=== PATIENT | male | born 1955 | race Caucasian/White ===

== ENCOUNTER 2017-01-23 01:16 | Emergency (ER) | payer OTHER ==
[~2017-01-23] VITALS: Ht 175.3 cm; Wt 114.0 kg
[2017-01-23 01:22] VITALS: Ht 175.3 cm; Wt 114.0 kg
[2017-01-23] MEDS ORDERED: ONDANSETRON 4 MG INJ IV STA (01:42)
[2017-01-23] MEDS ORDERED: morphine 4 MG/ML VIAL IV STA (01:42)
--- NOTE | 2017-01-23 02:07 | RADRPT ---
PROCEDURE: CHEST CLINICAL INDICATION: 61-year-old male with chest pain. TECHNIQUE: AP upright portable view of the chest was obtained portably on two radiographs. The im ages were reviewed on a PACS workstation. COMPARISON: None. FINDINGS: The cardiomediastinal silhouette has a normal appearance. There is no evidence for an infiltrate. There is no evidence for congestive heart failure. There is no evidence for pneumothorax. The osseou s structures are intact. IMPRESSION: No evidence for active cardiopulmonary disease. .Chu Pendleton MD, MD Date Time Electronically viewed and signed by .Chu Pendleton MD, on 01/23/2017 02:07 .Emily/
[2017-01-23 02:41] LABS: BASOPHILS % 0.6 % (0.0-2.0); EOSINOPHILS # 0.1 10^3/ul (0.0-0.5); EOSINOPHILS % 1.8 % (0.0-7.0); HEMATOCRIT 41.6 % (42.0-52.0); HEMOGLOBIN 14.2 g/dl (14.0-18.0); LYMPHOCYTES # 2.9 10^3/ul (0.8-2.9); LYMPHOCYTES % 39.7 % (15.0-51.0); MEAN CORPUSCULAR HEMOGLOBIN 30.7 pg (29.0-33.0); MEAN CORPUSCULAR HGB CONC 34.1 g/dl (32.0-37.0); MEAN PLATELET VOLUME 10.3 fl (7.4-10.4); MONOCYTE # 0.5 10^3/ul (0.3-0.9); MONOCYTES % 6.9 % (0.0-11.0); NEUTROPHIL # 3.7 10^3/ul (1.6-7.5); NEUTROPHILS % 50.9 % (39.0-77.0); PLATELET COUNT 232 10^3/UL (140-415); RED BLOOD COUNT 4.62 10^6/ul (4.70-6.10); RED CELL DISTRIBUTION WIDTH 13.4 % (11.5-14.5); WHITE BLOOD COUNT 7.3 10^3/ul (4.8-10.8)
[2017-01-23 02:57] LABS: INR 1.02; PROTIME 13.4 Sec (12.2-14.2)
[2017-01-23 02:58] LABS: PARTIAL THROMBOPLASTIN TIME 28.9 Sec (25.0-35.0)
[2017-01-23 02:59] LABS: ALANINE AMINOTRANSFERASE 41 IU/L (13-69); ALBUMIN 4.7 g/dl (3.3-4.9); ALBUMIN/GLOBULIN RATIO 1.42; ALKALINE PHOSPHATASE 87 IU/L (42-121); ANION GAP 23 (8-16); ASPARTATE AMINO TRANSFERASE 28 IU/L (15-46); BILIRUBIN,INDIRECT 0.5 mg/dl (0-1.1); BILIRUBIN,TOTAL 0.5 mg/dl (0.2-1.3); BLOOD UREA NITROGEN 10 mg/dl (7-20); CALCIUM 8.8 mg/dl (8.4-10.2); CARBON DIOXIDE 24 mmol/L (21-31); CHLORIDE 100 mmol/L (97-110); CREATININE 0.76 mg/dl (0.61-1.24); GLUCOSE 200 mg/dl (70-220); POTASSIUM 3.9 mmol/L (3.5-5.1); SODIUM 143 mmol/L (135-144)
[2017-01-23] MEDS ORDERED: ACET1TAB40 PO (03:08)
[2017-01-23] MEDS ORDERED: OMEG-135 PO (03:08)
[2017-01-23] MEDS ORDERED: ASPI325T4 PO (03:08)
[2017-01-23] MEDS ORDERED: BENA20TA48 PO (03:08)
[2017-01-23] MEDS ORDERED: LEVO25TA53 PO (03:08)
[2017-01-23] MEDS ORDERED: MTF1000T PO (03:08)
[2017-01-23] MEDS ORDERED: ATOR20TA38 PO (03:08)
[2017-01-23 03:11] LABS: B-TYPE NATRIURETIC PEPTIDE 13 PG/ML (0-125)
[2017-01-23 03:15] LABS: TROPONIN-I < 0.012 ng/ml (0.00-0.12)
[2017-01-23] MEDS ORDERED: TRAM50TA2 PO (04:03)
--- NOTE | 2017-01-23 04:03 | ERD ---
ER Documentation Chief Complaint Date/Time DATE: 01/23/17 TIME: 04:02 Chief Complaint chest pain x 3 days, stabbing chest pain HPI This is a 14-year-old male has had chest pain on and off for the past 2 weeks worse over the last 3 days. It is worse when he presses on it. Reproducible. Mild to moderate intensity. No fevers or chills. No other current complaints. ROS All systems reviewed and are negative except as per history of present illness. Medications Home Meds Reported Medications Acetaminophen with Codeine (Acetaminophen-Cod #3 Tablet) 1 Each Tablet, 1 TAB PO Q6H, #7 TAB 01/23/17 Aspirin* (Aspirin*) 325 Mg Tablet, 325 MG PO QID Y for PAIN, TAB 01/23/17 Benazepril Hcl* (Benazepril Hcl*) 20 Mg Tablet, 20 MG PO DAILY, #30 TAB 01/23/17 Levothyroxine Sodium* (Levothyroxine Sodium*) 25 Mcg Tablet, 25 MCG PO BEFORE BREAKFAST, #30 TAB 01/23/17 Atorvastatin Calcium* (Atorvastatin Calcium*) 20 Mg Tablet, 20 MG PO QHS, #30 TAB 01/23/17 [place]-3 Fatty Acids/Fish Oil (Fish Oil 1,000 mg Capsule) 1 Each Capsule, 1 EACH PO, CAP 01/23/17 Metformin* (Glucophage*) 1,000 Mg Tablet, 1000 MG PO WITH BREAKFAST, #30 TAB 01/23/17 Allergies Allergies: Coded Allergies: No Known Allergy (Unverified , 01/23/17) PMhx/Soc Medical and Surgical Hx: pt denies Surgical Hx History of Surgery: No Anesthesia Reaction: No Hx Neurological Disorder: No Hx Respiratory Disorders: No Hx Cardiac Disorders: Yes (htn, cholesterol) Hx Psychiatric Problems: No Hx Miscellaneous Medical Probl: Yes (dm 2, thyroid) Hx Alcohol Use: Yes (occasional) Hx Substance Use: No Hx Tobacco Use: No Smoking Status: Former smoker Physical Exam Vitals Vital Signs Date Time Temp Pulse Resp B/P Pulse Ox O2 Delivery O2 Flow Rate FiO2 01/23/17 03:25 81 16 126/80 94 Room Air 01/23/17 02:26 Nasal Cannula 01/23/17 02:21 77 18 141/85 99 Room Air 01/23/17 01:22 98.3 76 20 155/84 97 Physical Exam Const: [] Head: Atraumatic Eyes: Normal Conjunctiva ENT: Normal External Ears, Nose and Mouth. Neck: Full range of motion..~ No meningismus. Resp: Clear to auscultation bilaterally Cardio: Regular rate and rhythm, no murmurs Abd: Soft, non tender, non distended. Normal bowel sounds Skin: No petechiae or rashes Back: No midline or flank tenderness Ext: No cyanosis, or edema Neur: Awake and alert Psych: Normal Mood and Affect Result Diagram: 01/23/1720801/23/17208 Results 24 hrs Laboratory Tests Test 01/23/17 02:09 White Blood Count 7.310^3/ul Red Blood Count 4.6210^6/ul Hemoglobin 14.2g/dl Hematocrit 41.6% Mean Corpuscular Volume 90.0fl Mean Corpuscular Hemoglobin 30.7pg Mean Corpuscular Hemoglobin Concent 34.1g/dl Red Cell Distribution Width 13.4% Platelet Count 00294^3/UL Mean Platelet Volume 10.3fl Neutrophils % 50.9% Lymphocytes % 39.7% Monocytes % 6.9% Eosinophils % 1.8% Basophils % 0.6% Nucleated Red Blood Cells % 0.0/100WBC Neutrophils # 3.710^3/ul Lymphocytes # 2.910^3/ul Monocytes # 0.510^3/ul Eosinophils # 0.110^3/ul Basophils # 0.010^3/ul Nucleated Red Blood Cells # 0.010^3/ul Prothrombin Time 13.4Sec Prothrombin Time Ratio 1.0 INR International Normalized Ratio 1.02 Activated Partial Thromboplast Time 28.9Sec Sodium Level 143mmol/L Potassium Level 3.9mmol/L Chloride Level 100mmol/L Carbon Dioxide Level 24mmol/L Anion Gap 23 Blood Urea Nitrogen 10mg/dl Creatinine 0.76mg/dl Glucose Level 200mg/dl Calcium Level 8.8mg/dl Total Bilirubin 0.5mg/dl Direct Bilirubin 0.00mg/dl Indirect Bilirubin 0.5mg/dl Aspartate Amino Transf (AST/SGOT) 28IU/L Alanine Aminotransferase (ALT/SGPT) 41IU/L Alkaline Phosphatase 87IU/L Troponin I < 0.012ng/ml B-Type Natriuretic Peptide 13PG/ML Total Protein 8.0g/dl Albumin 4.7g/dl Globulin 3.30g/dl Albumin/Globulin Ratio 1.42 Current Medications Medications (Trade) Dose Ordered Sig/Donald Route PRN Reason Start Time Stop Time Status Last Admin Dose Admin Morphine Sulfate (morphine) 4 mg ONCE STAT IV 01/23/17 01:42 01/23/17 01:43 DC 01/23/17 02:35 Ondansetron HCl (Zofran Inj) 4 mg ONCE STAT IV 01/23/17 01:42 01/23/17 01:43 DC 01/23/17 02:35 Procedures/MDM EKG: Rate/Rhythm: Normal Sinus Rhythm QRS, ST, T-waves: No changes consistent w/ acute ischemia Impression: No evidence of ischemia or arrhythmia Chest X-ray 1V Interpreted by me: Soft Tissue: No acute abnormalities Bones: No acute abnormalities Mediastinum/Cardiac Silhouette/Lungs: No acute abnormalities Patient's thoracic symptoms have stabilized while in the department and are stable for outpatient follow up. Exam and work up not consistent w/ ischemia, arrhythmia, PE or dissection. Departure Diagnosis: Primary Impression: Chest pain Chest pain type: unspecified Qualified Code: R07.9 - Chest pain, unspecified type Condition: Stable JUMANA WILSON Jan 23, 2017 04:03
[2017-01-23 04:22] VITALS: BP 110/63; PULSE 85; RESP 16
== END 2017-01-23 04:25 | disposition home or self-care (01) ==
LOC: E/R 01:16
DX: R07.9 Chest pain, unspecified (principal); I10 Essential (primary) hypertension; E11.9 Type 2 diabetes mellitus without complications; Z79.82 Long term (current) use of aspirin; Z79.84 Long term (current) use of oral hypoglycemic drugs; Z87.891 Personal history of nicotine dependence
CPT/HCPCS: 36415; 71010; 80053; 83880; 84484; 85025; 85610; 85730; 93005; 96374; 96375; J2270; J2405; Z7502

== ENCOUNTER → 2019-03-07 | Emergency (ER) | payer MEDICARE, OTHER ==
[~2019-03-07] VITALS: Ht 172.7 cm; Wt 97.1 kg
[~2019-03-07] MED LIST: ACET1TAB40 PO; ASPI325T30 PO; ATOR20TA38 PO; BENA20TA4 PO; LEVO25TA6 PO; MTF1000T PO; OMEG-135 PO; TRAM50TA2 PO
[2019-03-07 04:44] VITALS: BP 125/67; PULSE 88; RESP 16; Ht 172.7 cm; Wt 97.1 kg
== END | disposition home or self-care (01) ==
LOC: FTE 04:36 → MERGE 04:36
DX: T14.90XA Injury, unspecified, initial encounter (principal); I10 Essential (primary) hypertension; W57.XXXA Bitten or stung by nonvenomous insect and other nonvenomous arthropods, initial encounter; Y92.9 Unspecified place or not applicable
CPT/HCPCS: 99282